=== PATIENT | female | born 1960 | race Caucasian/White ===

== ENCOUNTER → 2020-07-04 | Outpatient (CLI) | payer MEDICARE ==
[~2020-07-04] MED LIST: ALBU8.5H8 INFIL; FLUT1AER IH; LINA5TAB PO; METF500T17 PO; Oxygen INH; ROSU40TA PO; TRAM50TA2 PO
[2020-07-04 16:00] LABS: ALBUMIN 3.8 g/dL (3.4-5.0); ANION GAP 4 mmol/L (5-15); CALCIUM 9.6 mg/dL (8.5-10.1); CHLORIDE 108 mmol/L (98-107)
[2020-07-04 16:04] LABS: ALANINE AMINOTRANSFERASE 63 U/L (12-78); ALKALINE PHOSPHATASE 94 U/L (45-117); BILIRUBIN,TOTAL 0.5 mg/dL (0.2-1.0); CREATININE 1.12 mg/dL (0.55-1.02); TOTAL PROTEIN 8.2 g/dL (6.4-8.2)
== END | disposition home or self-care (01) ==
LOC: STAR 14:32
PROVIDERS: ATTEND Surgery Surgery of the Hand
DX: Z01.818 Encounter for other preprocedural examination (principal); G56.01 Carpal tunnel syndrome, right upper limb; M65.351 Trigger finger, right little finger; M65.331 Trigger finger, right middle finger; Z20.828 Contact with and (suspected) exposure to other viral communicable diseases
CPT/HCPCS: 36415; 80053; 87635; 93005

== ENCOUNTER 2020-07-09 06:36 | Day surgery (SDC) | payer MEDICARE, MEDICAID ==
[~2020-07-09] VITALS: Ht 153.7 cm; Wt 82.6 kg
[2020-07-09] MEDS ORDERED: MIDAZOLAM 1 MG/ML, 2ML ONE (07:17)
[2020-07-09] MEDS ORDERED: FENTANYL PF 250 MCG/5ML ONE (07:17)
[2020-07-09] MEDS ORDERED: CEFAZOLIN 1,000 MG ONE (07:20)
[2020-07-09] MEDS ORDERED: DEXAMETHASONE 4 MG/ML, 1ML ONE (07:20)
[2020-07-09] MEDS ORDERED: ONDANSETRON 2MG/ML, 2ML ONE (07:20)
[2020-07-09] MEDS ORDERED: PROPOFOL 10 MG/ML, 20ML ONE (07:20)
[2020-07-09 07:23] VITALS: BP 135/77
[2020-07-09] MEDS ORDERED: LACTATED RINGERS 1,000 ML IV SCH (07:30)
[2020-07-09] MEDS ORDERED: CHLORHEXIDINE 15 ML UDC MM ONE (07:30)
[2020-07-09] MEDS ORDERED: BUPIVACAINE/PF 0.25% ONE (08:03)
[2020-07-09] MEDS ORDERED: MEPERIDINE/PF 25MG/0.5ML IVPush PRN (08:30)
[2020-07-09] MEDS ORDERED: PROMETHAZINE 25 MG/ML, 1ML IVPush PRN (08:30)
[2020-07-09] MEDS ORDERED: FENTANYL PF 100 MCG/2ML IV PRN (08:30)
[2020-07-09] MEDS ORDERED: hydrALAzine 20 MG/ML, 1ML IV PRN (08:30)
[2020-07-09] MEDS ORDERED: LABETALOL 5MG/ML, 20ML IV PRN (08:30)
[2020-07-09] MEDS ORDERED: HALOPERIDOL 5 MG/ML IV PRN (08:30)
[2020-07-09] MEDS ORDERED: ACETAMINOPHEN 325 MG TABLET PO PRN (08:30)
[2020-07-09] MEDS ORDERED: OXYcodone 5 MG/5 ML ORAL.SOL UDC PO PRN (08:30)
[2020-07-09] MEDS ORDERED: HYDROmorphone 1 MG/ML, 1ML INJ IVPush PRN (08:30)
[2020-07-09] MEDS ORDERED: FENTANYL PF 100 MCG/2ML ONE (09:31)
[2020-07-09] MEDS ORDERED: OXYcodone 5 MG/5 ML ORAL.SOL UDC ONE (09:31)
[2020-07-09] MEDS ORDERED: ACETAMINOPHEN 325 MG TABLET ONE (09:42)
[2020-07-09] MEDS ORDERED: ACETAMINOPHEN 650 MG/20.3 ML UDC ONE (09:42)
[2020-07-09] MEDS: morphine SULFATE 10 MG/ML, 1ML IVPush PRN ×2 (09:50→10:00)
[2020-07-09] MEDS ORDERED: MORPHINE SULFATE 4 MG/ML, 1ML ONE (09:53)
[2020-07-09] MEDS ORDERED: GABAPENTIN 300 MG CAPSULE ONE (10:19)
[2020-07-09] MEDS ORDERED: GABAPENTIN 300 MG CAPSULE PO ONE (10:30)
== END 2020-07-09 12:40 | disposition home or self-care (01) ==
LOC: OUT 06:36
PROVIDERS: ATTEND Surgery Surgery of the Hand
DX: G56.01 Carpal tunnel syndrome, right upper limb (principal); M65.321 Trigger finger, right index finger; M65.341 Trigger finger, right ring finger; M65.351 Trigger finger, right little finger; M65.331 Trigger finger, right middle finger; E11.9 Type 2 diabetes mellitus without complications; J44.9 Chronic obstructive pulmonary disease, unspecified; E78.5 Hyperlipidemia, unspecified; M06.9 Rheumatoid arthritis, unspecified; Z79.84 Long term (current) use of oral hypoglycemic drugs; Z79.891 Long term (current) use of opiate analgesic; Z79.899 Other long term (current) drug therapy; Z87.891 Personal history of nicotine dependence; Z88.2 Allergy status to sulfonamides; Z88.8 Allergy status to other drugs, medicaments and biological substances; Z99.81 Dependence on supplemental oxygen; Z82.61 Family history of arthritis; Z82.49 Family history of ischemic heart disease and other diseases of the circulatory system
CPT/HCPCS: 26055; 64721; 82962; J0690; J1100; J2250; J2270; J2405; J2704; J3010; J7120